=== PATIENT | female | born 2000 | race Caucasian/White ===

== ENCOUNTER 2019-12-29 07:29 | Outpatient (CLI) | payer BC, SELFPAY ==
--- NOTE | 2019-12-29 08:00 | US_ITS ---
WS: [id number] RIGHT DIGITAL MAMMOGRAPHY WITH CAD CLINICAL INFORMATION: right breast lump COMPARISON: August 11, 2018 TECHNIQUE: 4 views of the right breast were obtained. FINDINGS: The right breast is composed of heterogeneous fibroglandular density tissue, which can limit the dete ction of small underlying mass lesions. Again seen is oval-shaped lobular soft tissue lesion upper-outer quadrant right breast measuring 1.7 cm similar to the prior examination. No other suspicious bone findings. Ultrasound is pending. ULTRASOUND BREAST RIGHT TECHNIQUE: Ultrasound right breast focused area of concern. CLINICAL INFORMATION: right breast lump FINDINGS: Ultrasound right breast at 900position. Again seen is the hypoechoic slightly lobulated solid lesion which appears relatively unchanged since August 11, 2018. Today's measures approximately 1.3 x 1.1 x 0.6 cm. Primary consideration in patient this age is fibroadenoma. Recommend consideration of ultra sound-guided biopsy versus surgical excision for definitive diagnosis. US/US breast RT limited* [id number] BI-RADS: 4A-Suspicious: Low FOLLOW UP: See Report
--- NOTE | 2019-12-29 09:30 | MM_ITS ---
WS: [id number] RIGHT DIGITAL MAMMOGRAPHY WITH CAD CLINICAL INFORMATION: right breast lump COMPARISON: August 11, 2018 TECHNIQUE: 4 views of the right breast were obtained. FINDINGS: The right breast is composed of heterogeneous fibroglandular density tissue, which can limit the dete ction of small underlying mass lesions. Again seen is oval-shaped lobular soft tissue lesion upper-outer quadrant right breast measuring 1.7 cm similar to the prior examination. No other suspicious bone findings. Ultrasound is pending. ULTRASOUND BREAST RIGHT TECHNIQUE: Ultrasound right breast focused area of concern. CLINICAL INFORMATION: right breast lump FINDINGS: Ultrasound right breast at 900position. Again seen is the hypoechoic slightly lobulated solid lesion which appears relatively unchanged since August 11, 2018. Today's measures approximately 1.3 x 1.1 x 0.6 cm. Primary consideration in patient this age is fibroadenoma. Recommend consideration of ultra sound-guided biopsy versus surgical excision for definitive diagnosis. MM/[place] [id number] BI-RADS: 4A-Suspicious: Low FOLLOW UP: See Report
== END 2019-12-29 07:30 | disposition home or self-care (01) ==
LOC: RAD 07:31
PROVIDERS: Family Provider Nurse Practitioner; PCP Nurse Practitioner; Visit Provider Obstetrics & Gynecology
DX: N63.10 Unspecified lump in the right breast, unspecified quadrant (principal)
CPT/HCPCS: 76642; 77065

== ENCOUNTER → 2020-11-12 10:32 | Outpatient (BNVA) | payer OTHER, SELFPAY | PROVIDERS: Family Provider Nurse Practitioner; PCP Nurse Practitioner; Visit Provider Nurse Practitioner | DX: F41.8 Other specified anxiety disorders (principal); Z13.6 Encounter for screening for cardiovascular disorders; Z12.4 Encounter for screening for malignant neoplasm of cervix | CPT/HCPCS: 80053; 80061; 85025; 88175 ==

== ENCOUNTER → 2020-12-03 10:35 | Outpatient (BNVA) | payer OTHER, SELFPAY | PROVIDERS: Family Provider Nurse Practitioner; PCP Nurse Practitioner; Visit Provider Nurse Practitioner | DX: R79.89 Other specified abnormal findings of blood chemistry (principal) | CPT/HCPCS: 85025 ==

== ENCOUNTER 2020-12-18 09:37 | Outpatient (CLI) | payer OTHER, SELFPAY ==
[2020-12-18 10:04] LABS: Hematocrit 39.1 % (37.0-47.0); Hemoglobin 13.2 g/dL (11.5-15.3); Lymphocytes # 1.7 10^3/uL (0.8-4.8); Lymphocytes % 41.3 %; Mean Corpuscular HGB Conc 33.8 g/dL (30.0-36.0); Mean Corpuscular Hemoglobin 30.4 pg (28.0-34.0); Mean Corpuscular Volume 90.1 fL (81-99); Mean Platelet Volume 8.4 fL (7.4-10.4); Monocytes # 0.4 10^3/uL (0.2-0.9); Neutrophils % 47.4 %; Nucleated Red Blood Cells % 0 %; Platelet Count 238 10^3/cmm (130-400); Red Blood Count 4.34 10^6/uL (4.1-5.3); Red Cell Distribution Width 11.3 % (12.1-15.1)
--- NOTE | 2020-12-18 17:30 | ONC CON_ITS ---
Dr. Cowan New Patient Note Patient: Patty Womack Unit #: [id number]: 2000 Dicatated By: Lazaro Cowan M.D.Date of Visit: Dec 18, 2020 Onc MED New Patient/Consult Referring Physician: Linda Haile History of Present Illness: Ms. Patty Womack, is a 20-year-old female with no significant past medical history except depression with anxiety, during her routine follow-up her lab work-up showed leukopenia, her repeat CBC done on 2020-12-03 showed white blood count 2.7 hemoglobin 12.6 hematocrit 38.8 platelets 269,000 neutrophils 330., No other abnormal cells seen. Patient denies any history of recurrent infections patient denies any history of sore throat, dysuria, sinus problem or ear ache. Patient denies any history of new [id number]-[id number] medication intake or new medication other than Wellbutrin/Lexapro she has been taking for some time. As per patient, in June 2020 she did experience flulike symptoms along with loss of taste, she thought she had Covid infection that time but never got tested , her symptoms improved without any treatment. Patient denies any night sweats, denies any recurrent fever denies any weight loss, denies any peripheral lymphadenopathy denies any abdominal fullness. Denies any nosebleed or gum bleed denies any petechia or ecchymosis denies any tick bite fever denies any history of diarrhea denies any history of dysuria Past Medical History: Ms. Womack's medical history consists of anxiety, breast lump, and depression. Past Surgical History: Ms. Womack's surgical history is unremarkable. Medications: buPROPion HCl ER (XL) 1 (150 mg) Tablet SR 24 HR Oral daily, Escitalopram Oxalate 1 (20 mg) Tablet Oral daily Allergies: Penicillins Social History: Ms. Womack is single. Ms. Womack has never smoked. She has no history of drinking. Family History: Ms. Womack's mother is alive: hypertension. Ms. Womack's father is alive: type II diabetes. Review Of Symptoms: Review of Systems is not available for this patient. Vital Signs: Performed on Dec 18, 2020 10:58: 0, 0, 0.00, 0.00 sq.m, 98 %, 81 /min, 18 /min, 134/72 mm(hg), 98.2 F (LOW), and 185.2 lbs (HIGH). Performance Status: 0 - Fully active, able to carry on all predisease activities without restrictions. (ECOG) Physical Examination: ENMT - No mouth sores, no thrush, no jaundice no cervical lymphadenopathy, Respiratory - Lungs are clear to auscultation, Cardiovascular - Regular rate and rhythm of heart, Abdomen - Soft, bowel sounds present, Extremities - No visible edema. Lab/Imaging: Most recent lab results are not available for this patient. Impression: Leukopenia/neutropenia etiology unclear could be multifactorial including subclinical infection viral,/bacterial, as per patient in June 2020 she had symptoms consistent with Covid infection like lost of taste, but never got tested and symptoms improved on its own. Primary marrow disorder but less likely History of depression/anxiety Plan: Discussed with patient regarding her labs white blood count 4000, hemoglobin 13.2 hematocrit 39.1 platelets 238,000 with normal differential and ANC 1900 Clinically, patient doing well, her repeat CBC done today shows resolution of leukopenia and neutropenia and with normal hemoglobin and platelet count and differential. Etiology of her transient leukopenia/neutropenia could be due to subclinical infection. At this point as her repeat CBC shows resolution of neutropenia/leukopenia no further work-up is needed rather observe, she will return to clinic in 1 month with CBC if it stayed within normal range, will see her on as-needed basis. Signed By: Lazaro Cowan M.D. <<Signature on File>>
== END 2020-12-18 09:38 | disposition home or self-care (01) ==
LOC: ONCMED 09:42
PROVIDERS: PCP Nurse Practitioner; Visit Provider Internal Medicine Hematology & Oncology
DX: Z09 Encounter for follow-up examination after completed treatment for conditions other than malignant neoplasm (principal); Z86.2 Personal history of diseases of the blood and blood-forming organs and certain disorders involving the immune mechanism; F41.8 Other specified anxiety disorders; Z86.16 Personal history of COVID-19
CPT/HCPCS: 85025; 99203

== ENCOUNTER 2020-12-23 07:49 | Outpatient (CLI) | payer OTHER, SELFPAY ==
--- NOTE | 2020-12-23 09:30 | US_ITS ---
WS: [id number] Right breast ultrasound, 12/23/2020 Clinical Data: R92.8 - Other abnormal and inconclusive findings on diagnostic imaging of breast Comparison: Right breast ultrasound 12/29/2019. Findings: There is a lesion of mixed echogenicity at the 9:00 position 3 cm from the nipple of the right breast . It is well bordered but has internal echoes. It measures 0.49 x 1.28 x 1.35 cm, and has not changed in size from the prior study. US/US breast RT limited* [id number] Impression: 1. Mixed echogenic lesion at the 9:00 position 3 cm from the nipple of the righ t breast unchanged. 2. Recommend biopsy. BIRADS: 4-Suspicious Finding-Biopsy Should Be Considered FOLLOW UP: See Report
== END 2020-12-23 07:50 | disposition home or self-care (01) ==
LOC: RAD 07:50
PROVIDERS: PCP Nurse Practitioner; Visit Provider Nurse Practitioner
DX: R92.8 Other abnormal and inconclusive findings on diagnostic imaging of breast (principal); N64.9 Disorder of breast, unspecified
CPT/HCPCS: 76642

== ENCOUNTER 2021-01-01 12:30 | Outpatient (CLI) | payer OTHER, SELFPAY ==
--- NOTE | 2021-01-01 13:00 | US_ITS ---
WS: [id number] ULTRASOUND-GUIDED RIGHT BREAST BIOPSY HISTORY: R92.8 - Other abnormal and inconclusive findings on diagnostic imaging of breast COMPARISON: 12/23/2020, 12/29/2019, 08/11/2018 and 02/14/2018 Procedure, risks and complications are explained to the patient. Medications are reviewed. Consent is obtained. The mass in the RIGHT breast is localized with ultrasound. Skin is cleansed with ChloraPrep and anest hetized with 1% buffered lidocaine. Small dermatome is made. Under sterile conditions mass is biopsie d with a 14-gauge Achieve needle. Multiple core biopsies are performed. Material placed in formalin a nd sent to pathology for review. No complications encountered. Breast tissue marker (Bard ultrasound enhanced ribbon): None. Patient left the radiology suite with no complications. Patient is instructed to return [place] [facility] [place] [facility] with any concerns. US/[place] [id number] IMPRESSION: 1. Uncomplicated core needle biopsy RIGHT breast mass at 9:00. 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 RECOMMENDATION: See report Benign pathology findings. No additional follow-up necessary unless there is a change in clinical presentation.
== END 2021-01-01 12:31 | disposition home or self-care (01) ==
LOC: RAD 12:32
PROVIDERS: PCP Nurse Practitioner; Visit Provider Nurse Practitioner
DX: R92.8 Other abnormal and inconclusive findings on diagnostic imaging of breast (principal); N63.15 Unspecified lump in the right breast, overlapping quadrants; N60.41 Mammary duct ectasia of right breast
CPT/HCPCS: 19083; 88305

== ENCOUNTER → 2021-03-03 16:02 | Outpatient (BNVA) | payer OTHER, SELFPAY | PROVIDERS: PCP Nurse Practitioner; Visit Provider Obstetrics & Gynecology | DX: N94.10 Unspecified dyspareunia (principal); N72 Inflammatory disease of cervix uteri; N94.6 Dysmenorrhea, unspecified | CPT/HCPCS: 87070; 87205; 87481; 87512; 87799 ==

== ENCOUNTER → 2021-09-08 10:54 | Outpatient (BNVA) | payer OTHER, SELFPAY | PROVIDERS: PCP Nurse Practitioner; Visit Provider Nurse Practitioner | DX: F41.8 Other specified anxiety disorders (principal); N94.6 Dysmenorrhea, unspecified | CPT/HCPCS: 80053; 85007; 85025 ==

== ENCOUNTER → 2022-07-31 09:35 | Outpatient (BNVA) | payer OTHER, SELFPAY | PROVIDERS: PCP Nurse Practitioner; Visit Provider Nurse Practitioner | DX: L03.90 Cellulitis, unspecified (principal); N90.5 Atrophy of vulva | CPT/HCPCS: 85025; 87070; 87205; 87255 ==

== ENCOUNTER 2023-01-19 22:11 | Emergency (ER) | payer OTHER, SELFPAY ==
[2023-01-19 22:18] VITALS: BP 123/74; PULSE 95; RESP 16; TEMP 36.7; O2SAT 99; BMI 31.4
--- NOTE | 2023-01-19 22:29 | W.ED.WOUNDLC ---
HPI - Wound/Laceration General: Chief Complaint: Needlestick/Injury/Exposure Stated Complaint: WC Time Seen by Provider: 01/19/23 22:15 History of Present Illness: Patient is a 22-year-old female who comes to the ED after needlestick injury. 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 No active bleeding. Denies any other injury. Associated symptoms: Denies chills, fever(s), nausea or vomiting Review of Systems Const: Denies: fever(s), chills or fatigue Eyes: Denies: change in vision or eye discomfort ENMT: Denies: throat pain, odynophagia, nasal discharge or nasal congestion Card: Denies: chest pain, palpitations, edema, swelling of feet/ankles, dyspnea on exertion or orthopnea Resp: Denies: dyspnea, productive cough or non-productive cough GI: Denies: abdominal pain, nausea, vomiting, diarrhea, constipation or hematochezia : Denies: flank pain, dysuria or hematuria Musc: Denies: neck pain, back pain or extremity swelling Skin/Breast: Reports: new lesions (Needlestick/puncture wound injury to right index finger); Denies: rash Neuro: Denies: headache(s), numbness in extremities or weakness in extremities PFSH ED PFSH: Medical History Allergic rhinitis due to allergen Breast lump Depression with anxiety Pharyngitis Surgical History History of breast biopsy Right 2020 stereotactic breast biopsy Family History Family/Other Breast cancer paternal great aunt Grandmother Hypertension paternal Hypercholesteremia Diabetes paternal Grandfather Hypertension paternal Hypercholesteremia Mother Hypertension Father Diabetes Denies family history of Thyroid disease Stroke Social History Smoking and tobacco status: never smoked Second hand smoke exposure: No Smoking risk assessment/counseling performed?: No Alcohol intake: never Desire information about alcohol rehabilitation?: No Counseling given: No Desire information about substance/drug rehabilitation?: No Counseling given: No Adopted: No Caregiver/support person: No Lives independently: Yes Household members: none Housing: House Marital status: Single Number of children: 0 service: No Current occupational status: employed Current occupation: [employer] [place]ets and animals: Yes Current gender identity: Female Female Reproductive History: Spontaneous abortions: No Physical Exam Const: COMMON NORMALS: patient oriented x3 HENMT: COMMON NORMALS: normocephalic HEAD & SCALP: normocephalic MOUTH: Normal oral and palatal mucosa present THROAT: posterior oropharynx normal and uvula midline Neck/C-Spine: COMMON NORMALS: supple GENERAL: Yes normal visual inspection Resp: COMMON NORMALS: normal respiratory effort, No retractions, No use of accessory muscles and clear to auscultation bilaterally AUSCULTATION: clear to auscultation bilaterally Cardio: COMMON NORMALS: regular rate, regular rhythm, S1 normal heart sound present, S2 normal heart sound present, No gallops present (Cardio), No clicks present (Cardio), No murmurs present (Cardio) and Peripheral pulses 2+ throughout RATE: regular rate RHYTHM: regular rhythm HEART SOUNDS: S1 normal heart sound present and S2 normal heart sound present PERIPHERAL PULSES: Peripheral pulses 2+ throughout GI: COMMON NORMALS: Normal to inspection, nondistended, normoactive bowel sounds present, Soft to palpation, non-tender and no masses PALPATION: Yes Soft to palpation : COMMON NORMALS: Yes no CVA tenderness BLADDER/KIDNEY EXAM: Yes no CVA tenderness Back/Pelvis: COMMON NORMALS: no CVA tenderness Extremity: NARRATIVE EXTREMITY EXAM: Right hand?index finger near-pad of finger has very small puncture wound noted. No erythema, warmth, swelling or drainage seen. Rest of exam is benign. Neuro: COMMON NORMALS: patient oriented x3 GAIT: Yes Normal gait present Skin: GENERAL SKIN EXAM: dry skin Course Vital Signs: Vital signs: Vital Signs Temperature 98.0 F 01/19/23 22:18 Pulse Rate 95 01/19/23 22:18 Respiratory Rate 16 01/19/23 22:18 Blood Pressure 123/74 01/19/23 22:18 Pulse Oximetry 99 01/19/23 22:18 Oxygen Delivery Me thod 01/19/23 22:18 MDM - Wound/Laceration Medical Decision Making Patient is a 22-year-old female who comes to the ED after needlestick injury. 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 No active bleeding. Denies any other injury. Vitals are stable. Right hand?index finger near-pad of finger has very small puncture wound noted. No erythema, warmth, swelling or drainage seen. Rest of exam is benign. CBC, CMP, hepatitis and HIV labs pending. Patient diagnosed with needlestick injury. Patient was told to call [facility] tomorrow morning to find out lab results. Follow-up with PCP and have repeat labs done in the next 4 to 6 weeks. Return to ED precautions given. Patient understood and agreed with plan. Discharge Plan Discharge Patient Disposition: Home Clinical Impression: Needlestick injury of finger Condition: Stable Prescriptions: No Action acetaminophen [Tylenol] 325 mg tablet 325 mg PO QID PRN bupropion HCl [Wellbutrin XL] 150 mg tablet extended release 24 hr 150 mg PO QAM Qty: 30 5RF escitalopram oxalate [Lexapro] 20 mg tablet 20 mg PO DAILY Qty: 30 5RF cetirizine 10 mg tablet 10 mg PO DAILY Qty: 90 1RF cefuroxime axetil 500 mg tablet 500 mg PO BID Qty: 20 0RF estradiol [Estrace] 0.01 % (0.1 mg/gram) cream 1 g vaginal .every 14 days Qty: 42.5 0RF Discharge Orders: Discharge ED (Routine); Ordered 01/19/23 Ordered By: Murphy Jefferson Referrals: Nicole Serrano, SOCIAL SERVICE TECHNICIAN-C [Primary Care Provider] - Discharge Diet: Regular Discharge Activity: Resume usual activity Patient Instructions: Needle Stick Injuries (ED) Activity Restrictions/Additional Instructions: Follow-up with medical provider as directed. Call lab tomorrow to find out results. Have labs redrawn (CBC, CMP, hepatitis panel HIV panel) in the next 4 to 6 weeks. Return to the ER or your medical provider if condition worsens. Please read and understand discharge instructions. Thank you for choosing [facility] for your healthcare needs today. Please realize this is an emergency room and that we are providing you with a medical screening exam and this may not be complete and all inclusive of all the testing and or work up that you may need to determine your ailment or severity of your illness. It is very important that you follow up as instructed or that you return to the Emergency Department should you have concerns or if your condition changes or worsens in any way. Coding Level of Care Code ED Core Mounter for Parth Maradiaga
[2023-01-19 22:43] LABS: Basophils # 0.1 10^3/uL (0.0-0.1); Basophils % 1.1 %; Eosinophils # 0.2 10^3/uL (0.0-0.8); Hematocrit 38.5 % (37.0-47.0); Hemoglobin 12.7 g/dL (11.5-15.3); Lymphocytes # 3.2 10^3/uL (0.8-4.8); Lymphocytes % 70.2 %; Mean Corpuscular Hemoglobin 29.3 pg (28.0-34.0); Mean Corpuscular Volume 88.9 fl (81-99); Mean Platelet Volume 8.6 fL (7.4-10.4); Monocytes # 0.6 10^3/uL (0.2-0.9); Monocytes % 12.9 %; Neutrophils % 10.8 %; Nucleated Red Blood Cells % 0 %; Platelet Count 263 10^3/cmm (130-400); Red Blood Count 4.33 10^6/uL (4.1-5.3); Red Cell Distribution Width 11.9 % (12.1-15.1); White Blood Count 4.6 10^3/uL (4.0-10.0)
[2023-01-19 23:00] LABS: Alanine Aminotransferase 12 U/L (0-33); Albumin Level 4.3 g/dL (3.5-5.2); Alkaline Phosphatase 75 U/L (35-105); Aspartate Amino Transferase 14 U/L (0-32); Blood Urea Nitrogen 13 mg/dL (6-20); Calcium 9.1 mg/dL (8.5-10.5); Carbon Dioxide 22 mmol/L (22-29); Chloride 103 mmol/L (98-107); Globulin 3.3 g/dL (1.3-4.6); Glomerular Filtration Rate 76.9 mL/min (90-130); Glucose 108 mg/dL (65-115); Neutrophils # 0.49 10^3/uL (1.8-7.7); Osmolality Calculated 281 mOsm/kg (285-295); Slide Review Slide Review Perform; Sodium 135 mmol/L (136-145); Total Bilirubin 0.4 mg/dL (0.15-1.2); Total Protein 7.6 g/dL (6.6-8.7)
[2023-01-19 23:05] VITALS: BP 117/82; PULSE 88; RESP 16; O2SAT 99
[2023-01-19 23:05] LABS: Anion Gap 13.7 (5-19); Potassium 3.7 mmol/L (3.5-5.1)
[2023-01-19 23:22] LABS: Hepatitis A Antibody IgM Non-Reactive (Nonreactive); Hepatitis B Core AB, Total Non-Reactive (Nonreactive); Hepatitis B Surface AB 3.5 (11.5-1000); Hepatitis B Surface Antigen Non-Reactive (Nonreactive); Hepatitis C Virus Antibody Non-Reactive (Nonreactive)
[2023-01-19 23:35] LABS: HIV 1 & 2 Antibody Non-Reactive (Non-Reactiv); HIV 1 & 2 Antigen Non-Reactive (Non-Reactiv)
== END 2023-01-19 23:20 | disposition home or self-care (01) ==
PROVIDERS: Emergency Provider Physician Assistant; PCP Nurse Practitioner
DX: S61.230A Puncture wound without foreign body of right index finger without damage to nail, initial encounter (principal); W46.0XXA Contact with hypodermic needle, initial encounter; Y92.238 Other place in hospital as the place of occurrence of the external cause; Y99.0 Civilian activity done for income or pay
CPT/HCPCS: 80053; 85025; 86705; 86706; 86709; 86803; 87340; 87806; 99283

== ENCOUNTER 2023-02-16 13:41 | Oncology outpatient (recurring) (ONCR) | payer OTHER, SELFPAY ==
[2023-02-16 14:31] LABS: Basophils # 0.1 10^3/uL (0.0-0.1); Basophils % 1.4 %; Eosinophils # 0.2 10^3/uL (0.0-0.8); Eosinophils % 5.5 %; Hematocrit 41.5 % (37.0-47.0); Hemoglobin 13.6 g/dL (11.5-15.3); Lymphocytes # 2.1 10^3/uL (0.8-4.8); Lymphocytes % 58.8 %; Mean Corpuscular HGB Conc 32.8 g/dL (30.0-36.0); Mean Corpuscular Hemoglobin 29.2 pg (28.0-34.0); Mean Corpuscular Volume 89.1 fl (81-99); Mean Platelet Volume 8.6 fL (7.4-10.4); Monocytes # 0.6 10^3/uL (0.2-0.9); Monocytes % 16.2 %; Neutrophils % 18.1 %; Nucleated Red Blood Cells % 0 %; Platelet Count 264 10^3/cmm (130-400); Red Blood Count 4.66 10^6/uL (4.1-5.3); Red Cell Distribution Width 12.2 % (12.1-15.1); White Blood Count 3.6 10^3/uL (4.0-10.0)
[2023-02-16 14:38] LABS: Neutrophils # 0.66 10^3/uL (1.8-7.7)
[2023-02-16 15:20] LABS: LAB Peripheral Smear Sent for Review
[2023-02-16 17:04] LABS: Folate Level 5.2 ng/mL (4.8-37.3)
[2023-02-16 17:52] LABS: Vitamin B12 325 pg/mL (232-1245)
[2023-02-19 12:37] LABS: Leukemia Profile (BBPL) See Report; Lymphoma Profile (BBPL) See Report
[2023-02-22 14:34] LABS: Copper Level 104 mcg/dL (70-175); Zinc Level, Serum or Plasma 74 mcg/dL (60-130)
== END 2023-03-10 23:59 | disposition home or self-care (01) ==
PROVIDERS: Internal Medicine Hematology & Oncology; PCP Nurse Practitioner; Visit Provider Internal Medicine Medical Oncology
DX: D72.9 Disorder of white blood cells, unspecified (principal)
CPT/HCPCS: 36415; 82525; 82607; 82746; 84630; 85025; 88184; 88185

== ENCOUNTER 2023-02-22 16:22 | Outpatient (CLI) | payer OTHER, SELFPAY ==
--- NOTE | 2023-02-22 16:45 | US_ITS ---
WS: [id number] Complete ABDOMINAL ULTRASOUND HISTORY: Evaluate spleen. COMPARISON: None available. Liver: 15.4 cm in length. Normal size liver and echogenicity. No bile duct dilatation or mass. Portal Vein: Normal hepatopetal flow with monophasic waveform. Gallbladder: Normally distended gallbladder with no stones or wall thickening. CBD: 0.3 cm Pancreas: Normal size and echogenicity. Right kidney: 12.1 cm x 5.2 x 4.0 cm. Cortex:1.0 cm. Normal size and echogenicity. No hydronephrosis or mass. Left kidney: 11.5 cm x 5.2 cm x 4.6 cm. Cortex: 1.2 cm. Normal size and echogenicity. No hydronephrosis or mass. Spleen: Normal size spleen measuring 11.3 cm in length. Very slight coarse echotexture but no mass. N o increased vascularity. Aorta and IVC: Unremarkable abdominal aorta and IVC. US/US abdomen complete* [id number] Impression: 1. Normal spleen. 2. No abnormalities identified abdominal ultrasound.
== END 2023-02-22 16:23 | disposition home or self-care (01) ==
LOC: RAD 16:24
PROVIDERS: PCP Nurse Practitioner; Visit Provider Internal Medicine Hematology & Oncology
DX: D72.9 Disorder of white blood cells, unspecified (principal)
CPT/HCPCS: 76700

== ENCOUNTER 2023-03-22 13:46 | Oncology outpatient (recurring) (ONCR) | payer OTHER, SELFPAY ==
[2023-03-22 14:02] VITALS: BP 112/73; PULSE 78; RESP 18; TEMP 36.4; O2SAT 98
--- NOTE | 2023-03-22 14:06 | PC.NURSE ---
lab drawn via rac x1 attempt, tolerated well.
[2023-03-22 14:11] LABS: Basophils % 0.8 %; Eosinophils # 0.2 10^3/uL (0.0-0.8); Eosinophils % 4.5 %; Hematocrit 39.5 % (37.0-47.0); Hemoglobin 13.3 g/dL (11.5-15.3); Lymphocytes # 2.5 10^3/uL (0.8-4.8); Lymphocytes % 68.6 %; Mean Corpuscular HGB Conc 33.7 g/dL (30.0-36.0); Mean Corpuscular Hemoglobin 29.8 pg (28.0-34.0); Mean Corpuscular Volume 88.6 fl (81-99); Mean Platelet Volume 8.4 fL (7.4-10.4); Monocytes # 0.5 10^3/uL (0.2-0.9); Monocytes % 14.6 %; Neutrophils % 11.2 %; Nucleated Red Blood Cells % 0 %; Platelet Count 255 10^3/cmm (130-400); Red Blood Count 4.46 10^6/uL (4.1-5.3); Red Cell Distribution Width 12.2 % (12.1-15.1); White Blood Count 3.6 10^3/uL (4.0-10.0)
== END 2023-04-09 23:59 | disposition home or self-care (01) ==
PROVIDERS: Internal Medicine Hematology & Oncology; PCP Nurse Practitioner; Visit Provider Internal Medicine Medical Oncology
DX: D72.9 Disorder of white blood cells, unspecified (principal)
CPT/HCPCS: 36415; 85025

== ENCOUNTER → 2024-02-24 09:42 | Outpatient (BNVA) | payer OTHER, SELFPAY | PROVIDERS: PCP Nurse Practitioner; Visit Provider Nurse Practitioner | DX: F41.8 Other specified anxiety disorders (principal); J30.9 Allergic rhinitis, unspecified; N90.5 Atrophy of vulva; D72.819 Decreased white blood cell count, unspecified; Z12.4 Encounter for screening for malignant neoplasm of cervix | CPT/HCPCS: 80053; 84443; 85025; 88175 ==

== ENCOUNTER → 2025-03-20 10:57 | Outpatient (BNVA) | payer OTHER, SELFPAY | PROVIDERS: PCP Nurse Practitioner; Visit Provider Nurse Practitioner | DX: E04.1 Nontoxic single thyroid nodule (principal) | CPT/HCPCS: 80053; 84439; 84443; 84481 ==

== ENCOUNTER 2025-03-27 15:12 | Outpatient (CLI) | payer OTHER, SELFPAY ==
--- NOTE | 2025-03-27 15:30 | US_ITS ---
WS: [id number] THYROID ULTRASOUND HISTORY: E04.1 - Nontoxic single thyroid nodule COMPARISON: 10/14/2017, 04/01/2017 Right lobe: 1.7 cm x 1.6 cm x 4.0 cm (w x ap x l). Volume: 5.0 cm3. Normal size and echotexture. No significant are dominant nodules are present. Left lobe: 1.6 cm x 1.6 cm x 4.9 cm (w x ap x l). Volume: 6.2 cm3. Slightly enlarged thyroid. Predominantly cystic nodule in the posterior mid LEFT thyroid measures 7 x 3 mm. Very similar in size as compared to the prior study from 2016 and 2018. Isthmus: 0.3 cm. US/US thyroid [id number] IMPRESSION: TI-RADS 2; mid LEFT thyroid nodule. No imaging follow-up necessary. Stable sinc e 2017.
== END 2025-03-27 15:13 | disposition home or self-care (01) ==
LOC: RAD 15:14
PROVIDERS: PCP Nurse Practitioner; Visit Provider Nurse Practitioner
DX: E04.1 Nontoxic single thyroid nodule (principal)
CPT/HCPCS: 76536